=== PATIENT | male | born 1990 | race Caucasian/White ===

== ENCOUNTER 2016-10-06 11:47 | Day surgery (SDC) | payer OTHER ==
[~2016-10-06] VITALS: Ht 182.9 cm; Wt 162.9 kg
[~2016-10-06 11:47] MED LIST: NORVASC5 MG PO; PRINZIDE 20-121 EACH PO; PROAIR HFA8.5 GM IH; ZYRTEC10 M3 PO
[2016-10-06 12:25] VITALS: BP 151/85
[2016-10-06 12:56] LABS: ANION GAP 11 MEQ/L (2-14); CHLORIDE 103 MEQ/L (99-109); GFR ESTIMATE (CALCULATED) > 59 mL/min/; GLUCOSE 99 mg/dL (70-99); POTASSIUM 4.3 MEQ/L (3.7-5.4); SAMPLE HEMOLYSIS CHECK 0; SAMPLE ICTERIC CHECK 0; SAMPLE LIPEMIA CHECK 0; SODIUM 140 MEQ/L (136-147); UREA NITROGEN (BUN) 10 mg/dL (9-23)
[2016-10-06 15:40] VITALS: BP 143/90
[2016-10-06 17:35] VITALS: BP 140/78
== END 2016-10-06 17:34 | disposition home or self-care (01) ==
LOC: SDC 11:47
PROVIDERS: Urology
PROC: 0VTB0ZZ Resection of Left Testis, Open Approach (ICD-10-PCS; principal; 2016-10-06)
DX: C62.12 Malignant neoplasm of descended left testis (principal); E66.01 Morbid (severe) obesity due to excess calories; Z68.42 Body mass index [BMI] 45.0-49.9, adult; I10 Essential (primary) hypertension; J45.909 Unspecified asthma, uncomplicated; Z84.1 Family history of disorders of kidney and ureter; Z82.49 Family history of ischemic heart disease and other diseases of the circulatory system
CPT/HCPCS: 80048; 88309; 93005; J0330; J0690; J1100; J1170; J2250; J2405; J3010; J7050; S0020

== ENCOUNTER 2017-02-16 07:27 | Day surgery (SDC) | payer OTHER | END 2017-02-16 09:45 | disposition home or self-care (01) | LOC: CATH 07:27 | DX: I87.8 Other specified disorders of veins (principal); C62.92 Malignant neoplasm of left testis, unspecified whether descended or undescended; I10 Essential (primary) hypertension | CPT/HCPCS: C1751; C1894; J0690; J1644; J2250; J3010; S0020 ==

== ENCOUNTER → 2017-05-29 | Outpatient (CLI) | payer OTHER ==
[~2017-05-29] MED LIST changes: +COMPAZINE10 MG PO; +OMEPRAZOLE20 MG PO; +ONDANSETRON HCL8 MG PO
== END | disposition home or self-care (01) ==
LOC: AMB 09:30
PROC: 0JPT0WZ Removal of Totally Implantable Vascular Access Device from Trunk Subcutaneous Tissue and Fascia, Open Approach (ICD-10-PCS; principal; 2017-05-29)
DX: Z45.2 Encounter for adjustment and management of vascular access device (principal); I87.8 Other specified disorders of veins

== ENCOUNTER → 2017-07-28 | Outpatient (CLI) | payer OTHER | END | disposition home or self-care (01) | LOC: RAD 07:23 | DX: C62.90 Malignant neoplasm of unspecified testis, unspecified whether descended or undescended (principal) | CPT/HCPCS: 71046; 74177 ==